=== PATIENT | male | born 1955 | race Caucasian/White ===

== ENCOUNTER → 2018-06-03 | Outpatient (CLI) | payer MEDICARE, BC ==
[~2018-06-03] MED LIST: BUPIVACAINE MPF 0.5% 30 ML VIAL. ONE
== END | disposition home or self-care (01) ==
LOC: SURG 12:23
PROVIDERS: ATTEND Anesthesiology
DX: M79.1 Myalgia (principal); G47.30 Sleep apnea, unspecified; J44.9 Chronic obstructive pulmonary disease, unspecified; I10 Essential (primary) hypertension; E11.9 Type 2 diabetes mellitus without complications; M19.90 Unspecified osteoarthritis, unspecified site; Z90.49 Acquired absence of other specified parts of digestive tract; Z98.890 Other specified postprocedural states; Z79.84 Long term (current) use of oral hypoglycemic drugs; Z79.82 Long term (current) use of aspirin; Z79.899 Other long term (current) drug therapy; F17.210 Nicotine dependence, cigarettes, uncomplicated; Z79.4 Long term (current) use of insulin; Z88.5 Allergy status to narcotic agent
CPT/HCPCS: 20553; J3490

== ENCOUNTER → 2022-01-30 | Outpatient (CLI) | payer MEDICARE, BC ==
[~2022-01-30] MED LIST changes: -BUPIVACAINE MPF 0.5% 30 ML VIAL. ONE; +IOHEXOL 240 MG/ML 50ML VIAL. PO ONE
--- NOTE | 2022-01-31 08:31 | RAD ---
CT scan of the abdomen and pelvis with oral contrast only 01/30/2022 CLINICAL HISTORY: Abnormal weight loss. TECHNIQUE: After the oral administration of contrast only, contiguous, 3 mm axial sections were obtai josi through the abdomen and pelvis. One or more of the following individualized dose reduction techniques were utilized for this study: 1. Automated exposure control. 2. Adjustment of the mA and/or kV according to patient size. 3. Use of iterative reconstruction technique. FINDINGS: Comparison study is dated 06/06/2007. Images through the lung bases demonstrate mild cardiomegaly. Minimal dependent subsegmental atelectas is is seen bilaterally. 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 The liver has a decreased attenuation suggesting fatty infiltration. The spleen, pancreas, adrenal gl ands and kidneys are within normal limits. Atherosclerotic calcification of the abdominal aorta is seen. The abdominal aorta tapers normally. Madsen rgical clips are seen within the gallbladder fossa consistent with a cholecystectomy. No free fluid o r free air is within abdomen. There is no evidence of bowel obstruction. The appendix is well-visuali zed and is within normal limits. No retroperitoneal lymphadenopathy is seen. Images through the pelvis demonstrate the urinary bladder distended with urine. Calcifications are se en within the pelvis consistent with phleboliths. No free fluid is seen. No pelvic or inguinal lympha denopathy is noted. Very mild S-shaped curvature of the thoracolumbar spine is seen. Degenerative changes are seen involv ing lower thoracic and throughout the lumbar spine along with both hips. IMPRESSION: No acute abnormality is seen. Electronically signed by: Eduardo Anne MD (01/31/2022 8:28 AM) [id number]
== END ==
LOC: CT 12:42
PROVIDERS: ATTEND Family Medicine
DX: S22.41XK Multiple fractures of ribs, right side, subsequent encounter for fracture with nonunion (principal); I51.7 Cardiomegaly; I70.0 Atherosclerosis of aorta; M41.85 Other forms of scoliosis, thoracolumbar region; M47.814 Spondylosis without myelopathy or radiculopathy, thoracic region; M47.816 Spondylosis without myelopathy or radiculopathy, lumbar region; M16.0 Bilateral primary osteoarthritis of hip; R63.4 Abnormal weight loss; X58.XXXD Exposure to other specified factors, subsequent encounter
CPT/HCPCS: 74176; Q9966